=== PATIENT | female | born 1955 | race Caucasian/White ===

== ENCOUNTER → 2021-03-06 | Outpatient (CLI) | payer MEDICARE, OTHER ==
[~2021-03-06] MED LIST: D3 PO; GLUCOPHAGE500 MG PO; JANUVIA100 MG PO; LANTUS100 UNIT/1 SQ; LISINOPRIL5 MG PO; NORVASC 5 MG TAB5 MG PO
== END ==
LOC: KOH-I 08:28
DX: Z87.891 Personal history of nicotine dependence (principal); R91.8 Other nonspecific abnormal finding of lung field
CPT/HCPCS: 71271

== ENCOUNTER → 2021-07-17 | Outpatient (CLI) | payer MEDICARE, OTHER | LOC: MAMO 14:50 | DX: Z12.31 Encounter for screening mammogram for malignant neoplasm of breast (principal); N64.89 Other specified disorders of breast | CPT/HCPCS: 77063; 77067 ==

== ENCOUNTER → 2021-08-13 | Outpatient (CLI) | payer MEDICARE, OTHER | LOC: MAMO 13:48 | DX: R92.8 Other abnormal and inconclusive findings on diagnostic imaging of breast (principal) | CPT/HCPCS: 76641-RT; 77065 ==

== ENCOUNTER → 2022-01-23 | Day surgery (SDC) | payer MEDICARE, OTHER ==
[~2022-01-23] VITALS: Ht 165.1 cm; Wt 93.9 kg
[~2022-01-23] MED LIST changes: +AMLODIPINE BESY10 MG PO; +ATORVASTATIN CA10 MG PO; +CALCIUM + VITA1 EACH PO; +CETIRIZINE HCL10 MG PO; +COZAAR 50MG TAB50 MG PO; +GALZIN25 MG PO; +GLUCOPHAGE 500500 MG PO; +LANTUS SOL100 UNIT/1 SQ; +MAGNESIUM250 M1 PO; +OZEMPIC1 MG/0.71 SQ; +PROZAC 10 MG CA10 MG PO; +VITAMIN C500 M4 PO; +VITAMIN D31250 MCG PO
== END | disposition home or self-care (01) ==
LOC: OR 07:19
DX: D12.2 Benign neoplasm of ascending colon (principal); D12.3 Benign neoplasm of transverse colon; K63.5 Polyp of colon; K57.30 Diverticulosis of large intestine without perforation or abscess without bleeding; K64.1 Second degree hemorrhoids; K64.4 Residual hemorrhoidal skin tags; K62.89 Other specified diseases of anus and rectum; I10 Essential (primary) hypertension; E11.9 Type 2 diabetes mellitus without complications; E78.5 Hyperlipidemia, unspecified; Z87.891 Personal history of nicotine dependence; Z79.4 Long term (current) use of insulin; Z79.899 Other long term (current) drug therapy
CPT/HCPCS: 82962; J2001; J2704; J7040

== ENCOUNTER → 2022-05-27 | Outpatient (CLI) | payer MEDICARE, OTHER | LOC: KOH-I 10:30 | DX: Z87.891 Personal history of nicotine dependence (principal); J98.4 Other disorders of lung | CPT/HCPCS: 71271 ==

== ENCOUNTER → 2022-05-28 | Outpatient (CLI) | payer MEDICARE, OTHER | LOC: EXRD 10:47 | DX: Z78.0 Asymptomatic menopausal state (principal) | CPT/HCPCS: 77080 ==